=== PATIENT | male | born 1980 | race Caucasian/White ===

== ENCOUNTER 2016-10-03 19:08 | Emergency (ER) | payer MEDICARE, BC, OTHER ==
[2016-10-03 20:06] VITALS: RESP 18
[2016-10-03] MEDS ORDERED: SODIUM CHLORIDE 0.9% 1,000 ML IV STA (20:36)
--- NOTE | 2016-10-03 20:39 | ED ---
General Adult HPI - General Chief complaint: Dizziness Stated complaint: dizziness Time Seen by Provider: 10/03/16 20:30 Source: patient, family, RN notes reviewed Mode of arrival: wheelchair Limitations: no limitations - History of Present Illness Initial comments: 36-year-old male presents to the emergency department with a chief complaint. Patient states the last day or so. Patient [place]. Patient states worse. Patient states lightheaded. He is unable to really describe how the accident. Patient states chest pain or shortness of breath with this. Patient states he hasn't had any fever chills. Patient denies any cough cold runny nose with this. Patient states he's never really felt like this worse if he was concerned.Patient denies any recent fever, chills, shortness of breath, chest pain, back pain, abdominal pain, nausea vomiting, numbness or tingling, dysuria or hematuria, constipation or diarrhea, headaches or visual changes, or any other current symptoms. - Related Data Home Medications Medication Instructions Recorded Confirmed Enalapril [Vasotec] 5 mg PO DAILY 11/07/13 10/03/16 Insulin Aspart [NovoLOG] See Protocol SQ CONTINUOUS 11/07/13 10/03/16 Morphine Sulfate [Ms Contin] 15 mg PO TID PRN 11/07/13 10/03/16 QUEtiapine [SEROquel] 400 mg PO HS 11/07/13 10/03/16 metFORMIN HCL [Glucophage] 500 mg PO BID 11/07/13 10/03/16 ALPRAZolam [Xanax] 0.25 mg PO TID PRN 10/03/16 10/03/16 Escitalopram [Lexapro] 20 mg PO DAILY 10/03/16 10/03/16 Gabapentin [Neurontin] 300 mg PO BID 10/03/16 10/03/16 Meclizine [Antivert] 25 mg PO BID PRN 10/03/16 10/03/16 Methylphenidate HCl [Concerta] 36 mg PO DAILY 10/03/16 10/03/16 lamoTRIgine [LaMICtal] 300 mg PO HS 10/03/16 10/03/16 oxyCODONE HCL [Roxicodone] 5 mg PO TID PRN 10/03/16 10/03/16 Previous Rx's Medication Instructions Recorded Clindamycin [Cleocin] 450 mg PO Q8HR #90 capsule 10/03/16 Allergies Allergy/AdvReac Type Severity Reaction Status Date / Time ciprofloxacin [From Cipro] Allergy Unknown Verified 10/03/16 22:02 ciprofloxacin HCl Allergy Unknown Verified 10/03/16 22:02 [From Cipro] indomethacin [From Indocin] Allergy Unknown Verified 10/03/16 22:02 indomethacin sodium Allergy Unknown Verified 10/03/16 22:02 [From Indocin] sulfamethoxazole Allergy Unknown Verified 10/03/16 22:02 [From Bactrim] trimethoprim [From Bactrim] Allergy Unknown Verified 10/03/16 22:02 Review of Systems ROS Statement: Those systems with pertinent positive or pertinent negative responses have been documented in the HPI. ROS Other: All systems not noted in ROS Statement are negative. Past Medical History Past Medical History: Diabetes Mellitus, Eye Disorder, Neurologic Disorder, Rheumatoid Arthritis (RA), Sleep Apnea/CPAP/BIPAP Additional Past Medical History / Comment(s): gastritis, chronic knee and back and eye pain, blindness, bipolar disorder, gastroparesis History of Any Multi-Drug Resistant Organisms: None Reported Past Surgical History: Orthopedic Surgery Additional Past Surgical History / Comment(s): eye surgery, bilateral knee Past Anesthesia/Blood Transfusion Reactions: No Reported Reaction Past Psychological History: Anxiety, Bipolar, Depression Smoking Status: Former smoker Past Alcohol Use History: None Reported Past Drug Use History: None Reported General Exam - General Exam Comments Initial Comments: General: The patient is awake and alert, in no distress, and does not appear acutely ill. Eye: Pupils are equal, round and reactive to light, extra-ocular movements are intact; there is normal conjunctiva bilaterally. No signs of icterus. Ears, nose, mouth and throat: There are moist mucous membranes. Neck: The neck is supple, there is no tenderness. Cardiovascular: There is a regular rate and rhythm. No murmur, rub or gallop is appreciated. Respiratory: Lungs are clear to auscultation, respirations are non-labored, breath sounds are equal. No wheezes, stridor, rales, or rhonchi. Gastrointestinal: Soft, non-distended, non-tender abdomen without masses or organomegaly noted. There is no rebound or guarding present. No CVA tenderness. Bowel sounds are unremarkable. Back: There is no tenderness to palpation in the midline. There is no obvious deformity. No rashes noted. Musculoskeletal: Normal ROM, no tenderness, There is no pedal edema. There is no calf tenderness or swelling. Sensation intact. Pulses equal bilaterally 2+. Neurological: CN II-XII intact, There are no obvious motor or sensory deficits. Coordination appears grossly intact. Speech is normal. Skin: Skin is warm and dry. At this time the patient does appear to have a very small pilonidal area. Psychiatric: Cooperative, appropriate mood & affect, normal judgment. Limitations: no limitations Course Vital Signs 10/03/16 20:00 Temperature 97.7 F Pulse Rate 109 H Respiratory 18 Rate Blood Pressure 121/70 O2 Sat by Pulse 98 Oximetry Medical Decision Making - Medical Decision Making 36 yo male presents to the ER with cc of dizziness. This time patient is reassessed. Patient is resting comfortably in the room. Lab work is reviewed. At this time we discussed the patient can continue the Antivert for home. Patient does appear to have some very small area of redness over the pilonidal area we will start antibiotics due to his history of needing drainage of this area at this time this does not appear to be appropriate. This time we discussed close follow-up with his doctor and return parameters. Patient and family are negative plan all questions have been answered. They will be discharged home. - Lab Data Result diagrams: 10/03/16 21:00 10/03/16 21:00 Lab Results 10/03/16 10/03/16 10/03/16 Range/Units 21:00 21:00 21:00 WBC 6.0 (3.8-10.6) k/uL RBC 4.73 (4.30-5.90) m/uL Hgb 14.0 (13.0-17.5) gm/dL Hct 39.9 (39.0-53.0) % MCV 84.4 (80.0-100.0) fL MCH 29.7 (25.0-35.0) pg MCHC 35.2 (31.0-37.0) g/dL RDW 13.3 (11.5-15.5) % Plt Count 292 (150-450) k/uL Neutrophils % 56 % Lymphocytes % 34 % Monocytes % 5 % Eosinophils % 3 % Basophils % 1 % Neutrophils # 3.4 (1.3-7.7) k/uL Lymphocytes # 2.0 (1.0-4.8) k/uL Monocytes # 0.3 (0-1.0) k/uL Eosinophils # 0.2 (0-0.7) k/uL Basophils # 0.0 (0-0.2) k/uL Sodium 139 (137-145) mmol/L Potassium 4.1 (3.5-5.1) mmol/L Chloride 103 (98-107) mmol/L Carbon Dioxide 27 (22-30) mmol/L Anion Gap 9 mmol/L BUN 8 L (9-20) mg/dL Creatinine 0.61 L (0.66-1.25) mg/dL Est GFR (MDRD) Af Amer >60 (>60 ml/min/1.73 sqM) Est GFR (MDRD) Non-Af >60 (>60 ml/min/1.73 sqM) Glucose 142 H (74-99) mg/dL Calcium 8.9 (8.4-10.2) mg/dL Total Bilirubin 0.3 (0.2-1.3) mg/dL AST 126 H (17-59) U/L ALT 125 H (21-72) U/L Alkaline Phosphatase 115 (38-126) U/L Troponin I <0.012 (0.000-0.034) ng/mL Total Protein 6.3 (6.3-8.2) g/dL Albumin 3.8 (3.5-5.0) g/dL Urine Color Urine Appearance (Clear) Urine pH (5.0-8.0) Ur Specific [place] (1.001-1.035) Urine Protein (Negative) Urine Glucose (UA) (Negative) Urine Ketones (Negative) Urine Blood (Negative) Urine Nitrite (Negative) Urine Bilirubin (Negative) Urine Urobilinogen (<2.0) mg/dL Ur Leukocyte Esterase (Negative) 10/03/16 Range/Units 21:00 WBC (3.8-10.6) k/uL RBC (4.30-5.90) m/uL Hgb (13.0-17.5) gm/dL Hct (39.0-53.0) % MCV (80.0-100.0) fL MCH (25.0-35.0) pg MCHC (31.0-37.0) g/dL RDW (11.5-15.5) % Plt Count (150-450) k/uL Neutrophils % % Lymphocytes % % Monocytes % % Eosinophils % % Basophils % % Neutrophils # (1.3-7.7) k/uL Lymphocytes # (1.0-4.8) k/uL Monocytes # (0-1.0) k/uL Eosinophils # (0-0.7) k/uL Basophils # (0-0.2) k/uL Sodium (137-145) mmol/L Potassium (3.5-5.1) mmol/L Chloride (98-107) mmol/L Carbon Dioxide (22-30) mmol/L Anion Gap mmol/L BUN (9-20) mg/dL Creatinine (0.66-1.25) mg/dL Est GFR (MDRD) Af Amer (>60 ml/min/1.73 sqM) Est GFR (MDRD) Non-Af (>60 ml/min/1.73 sqM) Glucose (74-99) mg/dL Calcium (8.4-10.2) mg/dL Total Bilirubin (0.2-1.3) mg/dL AST (17-59) U/L ALT (21-72) U/L Alkaline Phosphatase (38-126) U/L Troponin I (0.000-0.034) ng/mL Total Protein (6.3-8.2) g/dL Albumin (3.5-5.0) g/dL Urine Color Light Yellow Urine Appearance Clear (Clear) Urine pH 5.5 (5.0-8.0) Ur Specific [place] 1.006 (1.001-1.035) Urine Protein Negative (Negative) Urine Glucose (UA) 4+ H (Negative) Urine Ketones Negative (Negative) Urine Blood Negative (Negative) Urine Nitrite Negative (Negative) Urine Bilirubin Negative (Negative) Urine Urobilinogen <2.0 (<2.0) mg/dL Ur Leukocyte Esterase Negative (Negative) - Radiology Data Radiology results: report reviewed, image reviewed Disposition Clinical Impression: Pilonidal abscess, Dizziness Disposition: HOME SELF-CARE Condition: Stable Instructions: Abscess (ED), Dizziness (ED) Additional Instructions: Please use medication as discussed. Please follow up with family doctor if symptoms have not improved over the next two days. Please return to the emergency room if your symptoms increase or worsen or for any other concerns. Prescriptions: Clindamycin [Cleocin] 450 mg PO Q8HR #90 capsule Referrals: Nonstaff,Physician [Primary Care Provider] - 1-2 days Time of Disposition: 22:31
[2016-10-03 21:16] LABS: Basophils % (A) 1 %; CH 29.8; CHCM 35.5; Eosinophils # (A) 0.2 k/uL (0-0.7); Eosinophils % (A) 3 %; HCT 39.9 % (39.0-53.0); Luc # (Auto) 0.08; Luc % (Auto) 1; Lymphocytes % (A) 34 %; MCH 29.7 pg (25.0-35.0); MCHC 35.2 g/dL (31.0-37.0); MCV 84.4 fL (80.0-100.0); Mean Platelet Volume 7.1; Monocytes # (A) 0.3 k/uL (0-1.0); Monocytes % (A) 5 %; Neutrophils # (A) 3.4 k/uL (1.3-7.7); Neutrophils % (A) 56 %; RBC 4.73 m/uL (4.30-5.90); RDW 13.3 % (11.5-15.5); WBC (Perox) 6.41
[2016-10-03 21:24] LABS: ALT 125 U/L (21-72); AST 126 U/L (17-59); Alkaline Phosphatase 115 U/L (38-126); Anion Gap 9 mmol/L; Blood Urea Nitrogen 8 mg/dL (9-20); Calcium 8.9 mg/dL (8.4-10.2); Carbon Dioxide 27 mmol/L (22-30); Chloride 103 mmol/L (98-107); Glucose 142 mg/dL (74-99); Non-African American GFR(MDRD) >60 (>60 ml/min/1.73 sqM); Potassium 4.1 mmol/L (3.5-5.1); Sodium 139 mmol/L (137-145); Total Bilirubin 0.3 mg/dL (0.2-1.3); Total Protein 6.3 g/dL (6.3-8.2)
[2016-10-03 21:30] LABS: Appearance,Urine Clear (Clear); Bilirubin,Urine Negative (Negative); Glucose,Urine (UA) 4+ (Negative); Ketones,Urine Negative (Negative); Leukocyte Esterase,Urine Negative (Negative); Nitrite,Urine Negative (Negative); PH, Urine 5.5 (5.0-8.0); Protein,Urine Negative (Negative); Specific Gravity,Urine 1.006 (1.001-1.035); UA Billing (MACRO vs. MICRO) CHEM; Urobilinogen,Urine <2.0 mg/dL (<2.0)
--- NOTE | 2016-10-03 21:36 | CT ---
EXAMINATION TYPE: CT brain wo con DATE OF EXAM: 10/03/2016 COMPARISON: NONE HISTORY: Weakness, fatigue and dizziness CT DLP: 1108.4 mGycm. Automated Exposure Control for Dose Reduction was Utilized. TECHNIQUE: CT scan of the head is performed without contrast. FINDINGS: There is no mass effect nor midline shift. There is no sign of intracranial hemorrhage. V entricles have normal size. The calvarium is intact. IMPRESSION: Negative CT scan of the brain.
[2016-10-03 23:03] VITALS: BP 111/64; PULSE 86; TEMP 97.1
== END 2016-10-03 23:02 | disposition home or self-care (01) ==
LOC: EC 19:08
DX: L05.01 Pilonidal cyst with abscess (principal); R42 Dizziness and giddiness; E11.9 Type 2 diabetes mellitus without complications; F31.9 Bipolar disorder, unspecified; F41.9 Anxiety disorder, unspecified; Z87.891 Personal history of nicotine dependence; Z79.4 Long term (current) use of insulin; Z79.84 Long term (current) use of oral hypoglycemic drugs; Z79.899 Other long term (current) drug therapy; Z88.1 Allergy status to other antibiotic agents; Z88.6 Allergy status to analgesic agent
CPT/HCPCS: 36415; 70450; 80053; 81003; 84484; 85025; 93005; 96360; 96361; 99284

== ENCOUNTER 2016-10-14 18:17 | Emergency (ER) | payer MEDICARE, BC, OTHER ==
[2016-10-14 18:26] LABS: Glucose,Whole Blood 122 mg/dL (75-99)
[2016-10-14] MEDS ORDERED: DEXTROSE 10 % IN WATER 250 ML IV STA ×3 (18:36→19:20)
[2016-10-14 19:04] LABS: Basophils % (A) 0 %; CH 30.2; CHCM 34.1; Eosinophils # (A) 0.2 k/uL (0-0.7); Eosinophils % (A) 3 %; HCT 38.9 % (39.0-53.0); HDW 2.74; HGB 12.8 gm/dL (13.0-17.5); Luc # (Auto) 0.06; Luc % (Auto) 1; Lymphocytes # (A) 1.2 k/uL (1.0-4.8); Lymphocytes % (A) 20 %; MCH 29.4 pg (25.0-35.0); MCHC 32.9 g/dL (31.0-37.0); MCV 89.2 fL (80.0-100.0); Mean Platelet Volume 7.2; Monocytes # (A) 0.3 k/uL (0-1.0); Monocytes % (A) 6 %; Neutrophils # (A) 4.2 k/uL (1.3-7.7); Neutrophils % (A) 70 %; RBC 4.35 m/uL (4.30-5.90); RDW 14.5 % (11.5-15.5); WBC (Perox) 6.23
[2016-10-14 19:12] LABS: ALT 64 U/L (21-72); AST 63 U/L (17-59); Alkaline Phosphatase 109 U/L (38-126); Anion Gap 5 mmol/L; Blood Urea Nitrogen 15 mg/dL (9-20); Calcium 9.1 mg/dL (8.4-10.2); Carbon Dioxide 30 mmol/L (22-30); Chloride 103 mmol/L (98-107); Glucose 108 mg/dL (74-99); Non-African American GFR(MDRD) >60 (>60 ml/min/1.73 sqM); Potassium 3.9 mmol/L (3.5-5.1); Sodium 138 mmol/L (137-145); Total Bilirubin 0.4 mg/dL (0.2-1.3); Total Protein 6.8 g/dL (6.3-8.2)
[2016-10-14 19:23] LABS: Partial Thromboplastin Time 26.4 sec (22.0-30.0); Prothrombin Time 9.9 sec (9.0-12.0)
[2016-10-14 19:24] LABS: Creatine Kinase 484 U/L (55-170)
--- NOTE | 2016-10-14 19:27 | ED ---
Altered Mental Status HPI - General Chief Complaint: Altered Mental Status Stated Complaint: Hypoglycemic Time Seen by Provider: 10/14/16 18:27 Source: EMS Mode of arrival: EMS Limitations: no limitations - History of Present Illness Initial Comments: 36l years old male presents with altered mental status EMS noticed that his sugar was 50 to give him dextrose on arrival to the ER sugar was greater than 100 hours she still quite sleepy he in and out he talks to you conversation is appropriate and he falls back to sleep no obvious distress he does have 2 pain meds on board. Complains about headache no neck pain no chest pain or shortness of breath or abdominal pain no frequency urgency dysuria no symptoms of TIA or CVA - Related Data Home Medications Medication Instructions Recorded Confirmed Enalapril [Vasotec] 5 mg PO DAILY 11/07/13 10/14/16 Insulin Aspart [NovoLOG] See Protocol SQ CONTINUOUS 11/07/13 10/14/16 Morphine Sulfate [Ms Contin] 15 mg PO TID PRN 11/07/13 10/14/16 QUEtiapine [SEROquel] 400 mg PO HS 11/07/13 10/14/16 metFORMIN HCL [Glucophage] 1,000 mg PO BID 11/07/13 10/14/16 ALPRAZolam [Xanax] 0.25 mg PO TID PRN 10/03/16 10/14/16 Escitalopram [Lexapro] 20 mg PO DAILY 10/03/16 10/14/16 Gabapentin [Neurontin] 300 mg PO BID 10/03/16 10/14/16 Meclizine [Antivert] 25 mg PO BID PRN 10/03/16 10/14/16 Methylphenidate HCl [Concerta] 36 mg PO DAILY 10/03/16 10/14/16 lamoTRIgine [LaMICtal] 300 mg PO HS 10/03/16 10/14/16 oxyCODONE HCL [Roxicodone] 5 mg PO TID PRN 10/03/16 10/14/16 Allergies Allergy/AdvReac Type Severity Reaction Status Date / Time ciprofloxacin [From Cipro] Allergy Unknown Verified 10/14/16 18:20 ciprofloxacin HCl Allergy Unknown Verified 10/14/16 18:20 [From Cipro] indomethacin [From Indocin] Allergy Unknown Verified 10/14/16 18:20 indomethacin sodium Allergy Unknown Verified 10/14/16 18:20 [From Indocin] sulfamethoxazole Allergy Unknown Verified 10/14/16 18:20 [From Bactrim] trimethoprim [From Bactrim] Allergy Unknown Verified 10/14/16 18:20 Review of Systems ROS Statement: Those systems with pertinent positive or pertinent negative responses have been documented in the HPI. ROS Other: All systems not noted in ROS Statement are negative. Past Medical History Past Medical History: Diabetes Mellitus, Eye Disorder, Neurologic Disorder, Rheumatoid Arthritis (RA), Sleep Apnea/CPAP/BIPAP Additional Past Medical History / Comment(s): gastritis, chronic knee and back and eye pain, blindness, bipolar disorder, gastroparesis History of Any Multi-Drug Resistant Organisms: None Reported Past Surgical History: Orthopedic Surgery Additional Past Surgical History / Comment(s): eye surgery, bilateral knee Past Anesthesia/Blood Transfusion Reactions: No Reported Reaction Past Psychological History: Anxiety, Bipolar, Depression Smoking Status: Former smoker Past Alcohol Use History: None Reported Past Drug Use History: None Reported General Exam - General Exam Comments Initial Comments: General: The patient is barely awake, GCS is 15 Skin: Skin is warm and dry and no rashes or lesions are noted. Eye: Pupils are equal, round and reactive to light, extra-ocular movements are intact; there is normal conjunctiva bilaterally. Ears, nose, mouth and throat: There are moist mucous membranes and no oral lesions. Neck: The neck is supple, there is no tenderness or JVD. Cardiovascular: There is a regular rate and rhythm. No murmur, rub or gallop is appreciated. Respiratory: To auscultation bilateral, no wheezing no rhonchi no distress respiratory valentin noticed Gastrointestinal: Soft, non-distended, non-tender abdomen without masses or organomegaly noted. There is no rebound or guarding present. Bowel sounds are unremarkable. Back: There is no tenderness to palpation in the midline. There is no obvious deformity. Musculoskeletal: Normal ROM, no tenderness, There is no pedal edema. There is no calf tenderness or swelling. No cords were appreciated. Neurological: CN II-XII intact, Cranial nerves III through XII are intact. There are no obvious motor or sensory deficits. Coordination appears grossly intact. Speech is normal. Psychiatric: Cooperative, appropriate mood & affect, normal judgment. Limitations: no limitations Course Vital Signs 10/14/16 18:20 Temperature 97.9 F Pulse Rate 98 Respiratory 16 Rate Blood Pressure 128/78 O2 Sat by Pulse 97 Oximetry Kelleylio normal sinus rhythm medical rate is 94 OK interval is 172 QRS duration is 98 QT/QTC 344/4:30) EKG does reveal a T-wave inversion in lead [address] elevation or ST depression noticed H - Reevaluation(s) Reevaluation #1: 10/14/16 20:29 At 2015 mom said that he has gastroparesis and he needs his Zofran and morphine once she gets and he will go home Medical Decision Making - Lab Data Result diagrams: 10/14/16 18:46 10/14/16 18:46 Lab Results 10/14/16 10/14/16 10/14/16 Range/Units 18:25 18:46 18:46 WBC 6.0 (3.8-10.6) k/uL RBC 4.35 (4.30-5.90) m/uL Hgb 12.8 L (13.0-17.5) gm/dL Hct 38.9 L (39.0-53.0) % MCV 89.2 (80.0-100.0) fL MCH 29.4 (25.0-35.0) pg MCHC 32.9 (31.0-37.0) g/dL RDW 14.5 (11.5-15.5) % Plt Count 251 (150-450) k/uL Neutrophils % 70 % Lymphocytes % 20 % Monocytes % 6 % Eosinophils % 3 % Basophils % 0 % Neutrophils # 4.2 (1.3-7.7) k/uL Lymphocytes # 1.2 (1.0-4.8) k/uL Monocytes # 0.3 (0-1.0) k/uL Eosinophils # 0.2 (0-0.7) k/uL Basophils # 0.0 (0-0.2) k/uL PT (9.0-12.0) sec INR (<1.2) APTT (22.0-30.0) sec Sodium (137-145) mmol/L Potassium (3.5-5.1) mmol/L Chloride (98-107) mmol/L Carbon Dioxide (22-30) mmol/L Anion Gap mmol/L BUN (9-20) mg/dL Creatinine (0.66-1.25) mg/dL Est GFR (MDRD) Af Amer (>60 ml/min/1.73 sqM) Est GFR (MDRD) Non-Af (>60 ml/min/1.73 sqM) Glucose (74-99) mg/dL POC Glucose (mg/dL) 122 H (75-99) mg/dL POC Glu [employer] ID Sofi, Haley Calcium (8.4-10.2) mg/dL Total Bilirubin (0.2-1.3) mg/dL AST (17-59) U/L ALT (21-72) U/L Alkaline Phosphatase (38-126) U/L Total Creatine Kinase 484 H (55-170) U/L CK-MB (CK-2) 7.6 H* (0.0-2.4) ng/mL CK-MB (CK-2) Rel Index 1.6 Troponin I <0.012 (0.000-0.034) ng/mL Total Protein (6.3-8.2) g/dL Albumin (3.5-5.0) g/dL Urine Color Urine Appearance (Clear) Urine pH (5.0-8.0) Ur Specific [place] (1.001-1.035) Urine Protein (Negative) Urine Glucose (UA) (Negative) Urine Ketones (Negative) Urine Blood (Negative) Urine Nitrite (Negative) Urine Bilirubin (Negative) Urine Urobilinogen (<2.0) mg/dL Ur Leukocyte Esterase (Negative) Urine Opiates Screen (NotDetected) Ur Oxycodone Screen (NotDetected) Urine Methadone Screen (NotDetected) Ur Propoxyphene Screen (NotDetected) Ur Barbiturates Screen (NotDetected) U Tricyclic Antidepress (NotDetected) Ur Phencyclidine Scrn (NotDetected) Ur Amphetamines Screen (NotDetected) U Methamphetamines Scrn (NotDetected) U Benzodiazepines Scrn (NotDetected) Urine Cocaine Screen (NotDetected) U Marijuana (THC) Screen (NotDetected) 10/14/16 10/14/16 10/14/16 Range/Units 18:46 18:46 19:00 WBC (3.8-10.6) k/uL RBC (4.30-5.90) m/uL Hgb (13.0-17.5) gm/dL Hct (39.0-53.0) % MCV (80.0-100.0) fL MCH (25.0-35.0) pg MCHC (31.0-37.0) g/dL RDW (11.5-15.5) % Plt Count (150-450) k/uL Neutrophils % % Lymphocytes % % Monocytes % % Eosinophils % % Basophils % % Neutrophils # (1.3-7.7) k/uL Lymphocytes # (1.0-4.8) k/uL Monocytes # (0-1.0) k/uL Eosinophils # (0-0.7) k/uL Basophils # (0-0.2) k/uL PT 9.9 (9.0-12.0) sec INR 1.0 (<1.2) APTT 26.4 (22.0-30.0) sec Sodium 138 (137-145) mmol/L Potassium 3.9 (3.5-5.1) mmol/L Chloride 103 (98-107) mmol/L Carbon Dioxide 30 (22-30) mmol/L Anion Gap 5 mmol/L BUN 15 (9-20) mg/dL Creatinine 0.63 L (0.66-1.25) mg/dL Est GFR (MDRD) Af Amer >60 (>60 ml/min/1.73 sqM) Est GFR (MDRD) Non-Af >60 (>60 ml/min/1.73 sqM) Glucose 108 H (74-99) mg/dL POC Glucose (mg/dL) (75-99) mg/dL POC Glu [employer] ID Calcium 9.1 (8.4-10.2) mg/dL Total Bilirubin 0.4 (0.2-1.3) mg/dL AST 63 H (17-59) U/L ALT 64 (21-72) U/L Alkaline Phosphatase 109 (38-126) U/L Total Creatine Kinase (55-170) U/L CK-MB (CK-2) (0.0-2.4) ng/mL CK-MB (CK-2) Rel Index Troponin I (0.000-0.034) ng/mL Total Protein 6.8 (6.3-8.2) g/dL Albumin 4.0 (3.5-5.0) g/dL Urine Color Yellow Urine Appearance Clear (Clear) Urine pH 7.0 (5.0-8.0) Ur Specific [place] 1.011 (1.001-1.035) Urine Protein Negative (Negative) Urine Glucose (UA) 3+ H (Negative) Urine Ketones Negative (Negative) Urine Blood Negative (Negative) Urine Nitrite Negative (Negative) Urine Bilirubin Negative (Negative) Urine Urobilinogen <2.0 (<2.0) mg/dL Ur Leukocyte Esterase Negative (Negative) Urine Opiates Screen Detected H (NotDetected) Ur Oxycodone Screen Not Detected (NotDetected) Urine Methadone Screen Not Detected (NotDetected) Ur Propoxyphene Screen Not Detected (NotDetected) Ur Barbiturates Screen Not Detected (NotDetected) U Tricyclic Antidepress Not Detected (NotDetected) Ur Phencyclidine Scrn Not Detected (NotDetected) Ur Amphetamines Screen Not Detected (NotDetected) U Methamphetamines Scrn Not Detected (NotDetected) U Benzodiazepines Scrn Detected H (NotDetected) Urine Cocaine Screen Not Detected (NotDetected) U Marijuana (THC) Screen Not Detected (NotDetected) 10/14/16 Range/Units 19:39 WBC (3.8-10.6) k/uL RBC (4.30-5.90) m/uL Hgb (13.0-17.5) gm/dL Hct (39.0-53.0) % MCV (80.0-100.0) fL MCH (25.0-35.0) pg MCHC (31.0-37.0) g/dL RDW (11.5-15.5) % Plt Count (150-450) k/uL Neutrophils % % Lymphocytes % % Monocytes % % Eosinophils % % Basophils % % Neutrophils # (1.3-7.7) k/uL Lymphocytes # (1.0-4.8) k/uL Monocytes # (0-1.0) k/uL Eosinophils # (0-0.7) k/uL Basophils # (0-0.2) k/uL PT (9.0-12.0) sec INR (<1.2) APTT (22.0-30.0) sec Sodium (137-145) mmol/L Potassium (3.5-5.1) mmol/L Chloride (98-107) mmol/L Carbon Dioxide (22-30) mmol/L Anion Gap mmol/L BUN (9-20) mg/dL Creatinine (0.66-1.25) mg/dL Est GFR (MDRD) Af Amer (>60 ml/min/1.73 sqM) Est GFR (MDRD) Non-Af (>60 ml/min/1.73 sqM) Glucose (74-99) mg/dL POC Glucose (mg/dL) 192 H (75-99) mg/dL POC Glu [employer] Operator ID [place], Haley Calcium (8.4-10.2) mg/dL Total Bilirubin (0.2-1.3) mg/dL AST (17-59) U/L ALT (21-72) U/L Alkaline Phosphatase (38-126) U/L Total Creatine Kinase (55-170) U/L CK-MB (CK-2) (0.0-2.4) ng/mL CK-MB (CK-2) Rel Index Troponin I (0.000-0.034) ng/mL Total Protein (6.3-8.2) g/dL Albumin (3.5-5.0) g/dL Urine Color Urine Appearance (Clear) Urine pH (5.0-8.0) Ur Specific [place] (1.001-1.035) Urine Protein (Negative) Urine Glucose (UA) (Negative) Urine Ketones (Negative) Urine Blood (Negative) Urine Nitrite (Negative) Urine Bilirubin (Negative) Urine Urobilinogen (<2.0) mg/dL Ur Leukocyte Esterase (Negative) Urine Opiates Screen (NotDetected) Ur Oxycodone Screen (NotDetected) Urine Methadone Screen (NotDetected) Ur Propoxyphene Screen (NotDetected) Ur Barbiturates Screen (NotDetected) U Tricyclic Antidepress (NotDetected) Ur Phencyclidine Scrn (NotDetected) Ur Amphetamines Screen (NotDetected) U Methamphetamines Scrn (NotDetected) U Benzodiazepines Scrn (NotDetected) Urine Cocaine Screen (NotDetected) U Marijuana (THC) Screen (NotDetected) Disposition Clinical Impression: Altered mental status, Gastroparesis Disposition: HOME SELF-CARE Condition: Good Instructions: Altered Mental Status (ED) Referrals: Nonstaff,Physician [Primary Care Provider] - 1-2 days
--- NOTE | 2016-10-14 19:33 | CT ---
EXAMINATION TYPE: CT brain wo con DATE OF EXAM: 10/14/2016 COMPARISON: 10/03/2016 HISTORY: weakness, ams, hypoglycemia CT DLP: 981.7 mGycm. Automated Exposure Control for Dose Reduction was Utilized. TECHNIQUE: CT scan of the head is performed without contrast. FINDINGS: Ventricles of normal size. There is no mass effect nor midline shift. There is no sign of i ntracranial hemorrhage. The calvarium is intact. IMPRESSION Negative CT scan of the brain. No change.
[2016-10-14 19:37] LABS: Troponin I <0.012 ng/mL (0.000-0.034)
--- NOTE | 2016-10-14 19:38 | XR ---
EXAMINATION TYPE: XR chest 2V DATE OF EXAM: 10/14/2016 COMPARISON: 10/20/2010 HISTORY: Altered mental status. Chest pain. TECHNIQUE: Frontal and lateral views of the chest are obtained. FINDINGS: Heart and mediastinum are normal. Lungs are clear. There is no sign of pleural effusion. B ede thorax is intact. IMPRESSION: Normal chest. No change.
[2016-10-14 19:40] LABS: Glucose,Whole Blood 192 mg/dL (75-99)
[2016-10-14 19:44] LABS: Creatine Kinase MB 7.6 ng/mL (0.0-2.4)
[2016-10-14 20:14] LABS: Appearance,Urine Clear (Clear); Bilirubin,Urine Negative (Negative); Glucose,Urine (UA) 3+ (Negative); Ketones,Urine Negative (Negative); Leukocyte Esterase,Urine Negative (Negative); Nitrite,Urine Negative (Negative); Protein,Urine Negative (Negative); Specific Gravity,Urine 1.011 (1.001-1.035); UA Billing (MACRO vs. MICRO) CHEM; Urobilinogen,Urine <2.0 mg/dL (<2.0)
[2016-10-14] MEDS ORDERED: MORPHINE SULFATE 4 MG/ML SYRINGE IVP STA (20:31)
[2016-10-14] MEDS ORDERED: ONDANSETRON 4 MG/2 ML VIAL IVP STA (20:31)
[2016-10-14 20:50] VITALS: BP 154/62; PULSE 74; RESP 15; TEMP 98.3
== END 2016-10-14 20:49 | disposition home or self-care (01) ==
LOC: EC 18:17
DX: K31.84 Gastroparesis (principal); R41.82 Altered mental status, unspecified; E11.9 Type 2 diabetes mellitus without complications; F31.9 Bipolar disorder, unspecified; F41.9 Anxiety disorder, unspecified; Z87.891 Personal history of nicotine dependence; Z79.4 Long term (current) use of insulin; Z79.899 Other long term (current) drug therapy; Z88.1 Allergy status to other antibiotic agents; Z88.2 Allergy status to sulfonamides; Z88.6 Allergy status to analgesic agent
CPT/HCPCS: 99285; 96374; 96375; 36415; 93005; 80053; 82550; 82553; 84484; 85025; 85610; 85730; 81003; 80306; 71020; 70450; J2270; J2405

== ENCOUNTER 2016-12-26 17:20 | Emergency (ER) | payer MEDICARE, BC, OTHER ==
[2016-12-26 17:28] VITALS: BP 134/62; PULSE 100; RESP 20; TEMP 98.2
--- NOTE | 2016-12-26 18:22 | ED ---
General Adult HPI - General Chief complaint: Skin/Abscess/Foreign Body Stated complaint: ABSCESS Time Seen by Provider: 12/26/16 17:55 Source: patient, RN notes reviewed Mode of arrival: ambulatory Limitations: no limitations - History of Present Illness Initial comments: This is a 36-year-old male who presents to the emergency department with chief complaint of abscess. Patient states that last night he noticed swelling and redness on his left abdomen. Patient states that it has been draining a bloody , clear fluid. Currently rates his pain as 8/10. Patient reports that he is on a ten-day course of Keflex for cellulitis of his toe and groin. Tomorrow is his last dose of Keflex. Patient reports he is a type I diabetic and has recurring skin infections. Denies fever, chills, chest pain, shortness of breath , abdominal pain, nausea or vomiting, constipation or diarrhea, dysuria or hematuria, numbness or tingling, headache or vision changes. - Related Data Home Medications Medication Instructions Recorded Confirmed Enalapril [Vasotec] 5 mg PO DAILY 11/07/13 12/26/16 Insulin Aspart [NovoLOG] See Protocol SQ CONTINUOUS 11/07/13 12/26/16 Morphine Sulfate [Ms Contin] 15 mg PO TID PRN 11/07/13 12/26/16 QUEtiapine [SEROquel] 400 mg PO HS 11/07/13 12/26/16 metFORMIN HCL [Glucophage] 1,000 mg PO BID 11/07/13 12/26/16 ALPRAZolam [Xanax] 0.25 mg PO TID PRN 10/03/16 12/26/16 Escitalopram [Lexapro] 20 mg PO DAILY 10/03/16 12/26/16 Gabapentin [Neurontin] 300 mg PO BID 10/03/16 12/26/16 Meclizine [Antivert] 25 mg PO BID PRN 10/03/16 12/26/16 Methylphenidate HCl [Concerta] 36 mg PO DAILY 10/03/16 12/26/16 lamoTRIgine [LaMICtal] 300 mg PO HS 10/03/16 12/26/16 oxyCODONE HCL [Roxicodone] 5 mg PO TID PRN 10/03/16 12/26/16 Previous Rx's Medication Instructions Recorded Clindamycin [Cleocin] 450 mg PO TID #90 cap 12/26/16 Allergies Allergy/AdvReac Type Severity Reaction Status Date / Time ciprofloxacin [From Cipro] Allergy Unknown Verified 12/26/16 17:28 ciprofloxacin HCl Allergy Unknown Verified 12/26/16 17:28 [From Cipro] indomethacin [From Indocin] Allergy Unknown Verified 12/26/16 17:28 indomethacin sodium Allergy Unknown Verified 12/26/16 17:28 [From Indocin] sulfamethoxazole Allergy Unknown Verified 12/26/16 17:28 [From Bactrim] trimethoprim [From Bactrim] Allergy Unknown Verified 12/26/16 17:28 Review of Systems ROS Statement: Those systems with pertinent positive or pertinent negative responses have been documented in the HPI. ROS Other: All systems not noted in ROS Statement are negative. Past Medical History Past Medical History: Diabetes Mellitus, Eye Disorder, Neurologic Disorder, Rheumatoid Arthritis (RA), Sleep Apnea/CPAP/BIPAP Additional Past Medical History / Comment(s): gastritis, chronic knee and back and eye pain, blindness, bipolar disorder, gastroparesis History of Any Multi-Drug Resistant Organisms: None Reported Past Surgical History: Orthopedic Surgery Additional Past Surgical History / Comment(s): eye surgery, bilateral knee Past Anesthesia/Blood Transfusion Reactions: No Reported Reaction Past Psychological History: Anxiety, Bipolar, Depression Smoking Status: Former smoker Past Alcohol Use History: Occasional Past Drug Use History: None Reported General Exam - General Exam Comments Initial Comments: General: Awake and alert, well-developed; in no apparent distress. HEENT: Head atraumatic, normocephalic. Pupils are equal, round and reactive to light. Extraocular movements intact. Neck: Supple. Normal ROM. Cardiovascular: Regular rate and rhythm. No murmurs, rubs or gallops. Chest symmetrical. Respiratory: Lungs clear to auscultation bilaterally. No wheezes, rales or rhonchi. Normal respiratory effort with no use of accessory muscles. Skin: [place], warm and dry. Small abscess with surrounding cellulitis noted on the left lower abdomen lateral to umbilicus. Abscess is draining a serous fluid. Neurological: Alert and oriented x3. CN II-XII grossly intact. No focal neuro deficits. Psychiatric: Normal mood and affect. No overt signs of depression or anxiety noted. Limitations: no limitations Course Vital Signs 12/26/16 17:26 Temperature 98.2 F Pulse Rate 100 Respiratory 20 Rate Blood Pressure 134/62 O2 Sat by Pulse 95 Oximetry Medical Decision Making - Medical Decision Making This is a 36-year-old male who presents to the emergency department with left abdominal abscess. This case was discussed with Dr. Moran who also evaluated the patient. Patient was advised to continue his Keflex. He will be prescribed clindamycin. Patient was advised to use warm compresses and allow abscess to drain. He was instructed to return to the emergency department if it worsens or he develops a fever. Patient is in agreement to the plan and voices understanding. All questions were answered. Disposition Clinical Impression: Abscess of skin of abdomen Disposition: HOME SELF-CARE Condition: Good Instructions: Abscess (ED) Additional Instructions: Please take medications as prescribed. Use warm compresses and allow abscess to drain. Please follow up with primary care provider within 1-2 days. Return to emergency department if symptoms should worsen, you develop a fever or any concerns arise. Prescriptions: Clindamycin [Cleocin] 450 mg PO TID #90 cap Referrals: Nonstaff,Physician [Primary Care Provider] - 1-2 days Time of Disposition: 18:22
== END 2016-12-26 18:33 | disposition home or self-care (01) ==
LOC: EC 17:20
DX: L02.211 Cutaneous abscess of abdominal wall (principal); E11.43 Type 2 diabetes mellitus with diabetic autonomic (poly)neuropathy; K31.84 Gastroparesis; F31.9 Bipolar disorder, unspecified; F41.9 Anxiety disorder, unspecified; Z88.1 Allergy status to other antibiotic agents; Z88.2 Allergy status to sulfonamides; Z88.6 Allergy status to analgesic agent; Z79.4 Long term (current) use of insulin; Z79.84 Long term (current) use of oral hypoglycemic drugs; Z79.899 Other long term (current) drug therapy; Z87.891 Personal history of nicotine dependence
CPT/HCPCS: 99282

== ENCOUNTER 2017-12-03 11:03 | Emergency (ER) | payer MEDICARE, BC, OTHER ==
[2017-12-03 11:41] VITALS: BP 118/75; PULSE 96; RESP 18; TEMP 98
--- NOTE | 2017-12-03 12:11 | XR ---
EXAMINATION TYPE: XR ankle complete RT, XR foot complete RT DATE OF EXAM: 12/03/2017 CLINICAL HISTORY: Twisting injury with pain TECHNIQUE: Frontal, lateral and oblique images of the right ankle and foot are obtained. COMPARISON: None. FINDINGS: There is no acute fracture/dislocation evident in the right ankle. The ankle mortise appe ars within normal limits. Moderate subcutaneous edema involving distal leg is present. There is more focal 7 mm round soft tissue density at level of lateral malleolus could reflect focal subcutaneous h ematoma. There is no acute fracture or dislocation evident in the right foot. Slight hallux valgus positioning first metatarsophalangeal joint is present. There is flexion in varus positioning distal third throu gh fifth toes. There is metallic linear 13 mm foreign body along plantar surface at level of fourth p roximal metaphysis proximal phalanx. IMPRESSION: There is linear radiodense foreign body suspected probable metallic needle fragment plan tar aspect forefoot level near base of fourth proximal phalanx. No acute fracture or dislocation is s een.
--- NOTE | 2017-12-03 12:37 | ED ---
Lower Extremity Injury HPI - General Chief Complaint: Extremity Injury, Lower Stated Complaint: Twisted ankle Time Seen by Provider: 12/03/17 12:10 Source: patient, RN notes reviewed Mode of arrival: ambulatory Limitations: no limitations - History of Present Illness Initial Comments: 37-year-old male presented emergency from chief complaint of right ankle foot injury. Patient states that he twisted today. Patient complains of pain along the ankle and the ball of his foot. Patient denies any open wounds or sores. Patient states that he's had no recent surgeries or fractures. Patient denies any paresthesias. - Related Data Home Medications Medication Instructions Recorded Confirmed Enalapril [Vasotec] 5 mg PO DAILY 11/07/13 12/26/16 Insulin Aspart [NovoLOG] See Protocol SQ CONTINUOUS 11/07/13 12/26/16 Morphine Sulfate [Ms Contin] 15 mg PO TID PRN 11/07/13 12/26/16 QUEtiapine [SEROquel] 400 mg PO HS 11/07/13 12/26/16 metFORMIN HCL [Glucophage] 1,000 mg PO BID 11/07/13 12/26/16 ALPRAZolam [Xanax] 0.25 mg PO TID PRN 10/03/16 12/26/16 Escitalopram [Lexapro] 20 mg PO DAILY 10/03/16 12/26/16 Gabapentin [Neurontin] 300 mg PO BID 10/03/16 12/26/16 Meclizine [Antivert] 25 mg PO BID PRN 10/03/16 12/26/16 Methylphenidate HCl [Concerta] 36 mg PO DAILY 10/03/16 12/26/16 lamoTRIgine [LaMICtal] 300 mg PO HS 10/03/16 12/26/16 oxyCODONE HCL [Roxicodone] 5 mg PO TID PRN 10/03/16 12/26/16 Previous Rx's Medication Instructions Recorded Clindamycin [Cleocin] 450 mg PO TID #90 cap 12/26/16 Ibuprofen [Motrin] 600 mg PO Q8HR PRN #30 tab 12/03/17 Allergies Allergy/AdvReac Type Severity Reaction Status Date / Time ciprofloxacin [From Cipro] Allergy Unknown Verified 12/03/17 11:42 ciprofloxacin HCl Allergy Unknown Verified 12/03/17 11:42 [From Cipro] indomethacin [From Indocin] Allergy Unknown Verified 12/03/17 11:42 indomethacin sodium Allergy Unknown Verified 12/03/17 11:42 [From Indocin] sulfamethoxazole Allergy Unknown Verified 12/03/17 11:42 [From Bactrim] trimethoprim [From Bactrim] Allergy Unknown Verified 12/03/17 11:42 Review of Systems ROS Statement: Those systems with pertinent positive or pertinent negative responses have been documented in the HPI. ROS Other: All systems not noted in ROS Statement are negative. Past Medical History Past Medical History: Diabetes Mellitus, Eye Disorder, Neurologic Disorder, Rheumatoid Arthritis (RA), Sleep Apnea/CPAP/BIPAP Additional Past Medical History / Comment(s): chronic knee and back and eye pain , blindness, gastroparesis History of Any Multi-Drug Resistant Organisms: None Reported Past Surgical History: Orthopedic Surgery Additional Past Surgical History / Comment(s): eye surgery, bilateral knee Past Anesthesia/Blood Transfusion Reactions: No Reported Reaction Past Psychological History: Anxiety, Bipolar, Depression Smoking Status: Former smoker Past Alcohol Use History: Occasional Past Drug Use History: None Reported General Exam Limitations: no limitations General appearance: alert, in no apparent distress Head exam: Present: atraumatic, normocephalic, normal inspection Respiratory exam: Present: normal lung sounds bilaterally. Absent: respiratory distress, wheezes, rales, rhonchi, stridor Cardiovascular Exam: Present: regular rate, normal rhythm, normal heart sounds. Absent: systolic murmur, diastolic murmur, rubs, gallop, clicks Extremities exam: Present: other (Tenderness along the lateral and medial malleoli region, ball of the foot no open wounds sores lesions noted there is no ecchymosis no swelling neurovascular intact.) Course Vital Signs 12/03/17 11:38 Temperature 98 F Pulse Rate 96 Respiratory 18 Rate Blood Pressure 118/75 O2 Sat by Pulse 98 Oximetry Medical Decision Making - Medical Decision Making 37-year-old male presented for right foot injury. There is no acute fracture he doesn't foreign-body though there is no opening appears to be old. He'll follow-up with orthopedic physician and return for any worsening symptoms. Disposition Clinical Impression: Right foot sprain, Foreign body in right foot Disposition: HOME SELF-CARE Condition: Stable Instructions: Foot Sprain (ED) Additional Instructions: Please return to the Emergency Department if symptoms worsen or any other concerns. Prescriptions: Ibuprofen [Motrin] 600 mg PO Q8HR PRN #30 tab PRN Reason: Pain Is patient prescribed a controlled substance at d/c from ED?: No Referrals: Nonstaff,Physician [Primary Care Provider] - 1-2 days Hector Sanchez DO [Doctor of Osteopathic Medicine] - 1-2 days Time of Disposition: 12:36
== END 2017-12-03 12:46 | disposition home or self-care (01) ==
LOC: EC 11:03
DX: S93.601A Unspecified sprain of right foot, initial encounter (principal); S90.851A Superficial foreign body, right foot, initial encounter; E11.9 Type 2 diabetes mellitus without complications; M06.9 Rheumatoid arthritis, unspecified; H54.7 Unspecified visual loss; F31.9 Bipolar disorder, unspecified; F41.9 Anxiety disorder, unspecified; Z87.891 Personal history of nicotine dependence; Z79.4 Long term (current) use of insulin; Z79.899 Other long term (current) drug therapy; Z88.1 Allergy status to other antibiotic agents; Z88.2 Allergy status to sulfonamides; Z88.8 Allergy status to other drugs, medicaments and biological substances; W01.0XXA Fall on same level from slipping, tripping and stumbling without subsequent striking against object, initial encounter; X50.1XXA Overexertion from prolonged static or awkward postures, initial encounter; Y92.009 Unspecified place in unspecified non-institutional (private) residence as the place of occurrence of the external cause
CPT/HCPCS: 99283

== ENCOUNTER 2022-11-15 03:35 | Observation (INO) | payer MEDICARE, BC, OTHER ==
[2022-11-15] MEDS ORDERED: MORPHINE SULFATE 4 MG/ML SYRINGE IV STA (04:04)
[2022-11-15] MEDS ORDERED: SODIUM CHLORIDE 0.9% 1,000 ML IV STA (04:04)
--- NOTE | 2022-11-15 04:05 | ED ---
Chest Pain HPI - General Chief Complaint: Chest Pain Stated Complaint: Chest pain Time Seen by Provider: 11/15/22 03:51 Source: patient, EMS, RN notes reviewed, old records reviewed Mode of arrival: EMS Limitations: no limitations - History of Present Illness Initial Comments: This is a 42-year-old male to the emergency department today for evaluation p atient resents today for evaluation regards to wrist pain abdominal pain epigastric pain. Elevated blood pressure elevated heart rate. Patient mildly poor historian secondary to some developmental delay present mother for symptoms. Does have underlying history of diabetes MD Complaint: chest pain -: hour(s) Onset: during rest, during exertion Pain Location: substernal, epigastric Severity: moderate Severity scale (1-10): 5 Quality: tightness, aching Consistency: intermittent Anginal Symptoms: nausea Treatments Prior to Arrival: none - Related Data Home Medications Medication Instructions Recorded Confirmed Methylphenidate HCl [Concerta] 36 mg PO DAILY 10/03/16 11/15/22 oxyCODONE HCL [Roxicodone] 5 mg PO TID PRN 10/03/16 11/15/22 QUEtiapine [SEROquel] 50 - 100 tab PO HS PRN 12/03/17 11/15/22 ALPRAZolam [Xanax] 0.5 mg PO DAILY PRN 11/15/22 11/15/22 Ascorbic Acid [Vitamin C] 500 mg PO DAILY 11/15/22 11/15/22 Atorvastatin [Lipitor] 20 mg PO HS 11/15/22 11/15/22 Cholecalciferol [Vitamin D3 (25 50 mcg PO DAILY 11/15/22 11/15/22 Mcg = 1000 Iu)] Docusate [Colace] 100 mg PO BID 11/15/22 11/15/22 Erythromycin [Otto-Tab] 250 mg PO Q8H 11/15/22 11/15/22 Ferrous Sulfate [Iron (65 MG 325 mg PO MOWEFR 11/15/22 11/15/22 Elemental)] Gabapentin [Neurontin] 400 mg PO TID 11/15/22 11/15/22 Insulin Aspart (For Pump) [NovoLOG 0.01 unit SQ-PUMP CONTINUOUS 11/15/22 11/15/22 (For Pump)] Methylphenidate HCl [Concerta] 18 mg PO DAILY@1300 11/15/22 11/15/22 Morphine Sulfate 15 mg PO BID 11/15/22 11/15/22 Naloxegol Oxalate [Movantik] 25 mg PO DAILY 11/15/22 11/15/22 Ondansetron [Ondansetron Odt] 4 mg PO Q4H PRN 11/15/22 11/15/22 QUEtiapine FUMARATE [SEROquel] 300 mg PO HS 11/15/22 11/15/22 Tacrolimus [Tacrolimus 0.1%] 1 applic TOPICAL TID 11/15/22 11/15/22 Tamsulosin [Flomax] 0.4 mg PO HS 11/15/22 11/15/22 Topiramate [Topamax] 50 mg PO BID 11/15/22 11/15/22 Vortioxetine Hydrobromide 10 mg PO DAILY 11/15/22 11/15/22 [Trintellix] Zinc Gluconate [Zinc] 50 mg PO DAILY 11/15/22 11/15/22 dilTIAZem HCL [dilTIAZem HCL 24Hr 120 mg PO BID 11/15/22 11/15/22 ER] lamoTRIgine [LaMICtal] 200 mg PO HS 11/15/22 11/15/22 metFORMIN HCL [Glucophage] 500 mg PO DIRECTED 11/15/22 11/15/22 Allergies Allergy/AdvReac Type Severity Reaction Status Date / Time ciprofloxacin [From Cipro] Allergy Unknown Verified 11/15/22 10:56 ciprofloxacin HCl Allergy Unknown Verified 11/15/22 10:56 [From Cipro] indomethacin [From Indocin] Allergy Unknown Verified 11/15/22 10:56 indomethacin sodium Allergy Unknown Verified 11/15/22 10:56 [From Indocin] sulfamethoxazole Allergy Unknown Verified 11/15/22 10:56 [From Bactrim] trimethoprim [From Bactrim] Allergy Unknown Verified 11/15/22 10:56 Review of Systems ROS Statement: Those systems with pertinent positive or pertinent negative responses have been documented in the HPI. ROS Other: All systems not noted in ROS Statement are negative. EKG Findings - EKG Comments: EKG Findings:: EKG sinus tachycardia 108 AK 161 QRS 104 QTC 390 Past Medical History Past Medical History: Diabetes Mellitus, Eye Disorder, Neurologic Disorder, Rheumatoid Arthritis (RA), Sleep Apnea/CPAP/BIPAP Additional Past Medical History / Comment(s): chronic knee and back and eye pain, blindness, gastroparesis History of Any Multi-Drug Resistant Organisms: None Reported Past Surgical History: Orthopedic Surgery Additional Past Surgical History / Comment(s): eye surgery, bilateral knee Past Anesthesia/Blood Transfusion Reactions: No Reported Reaction Past Psychological History: Anxiety, Bipolar, Depression Past Alcohol Use History: Occasional Past Drug Use History: None Reported - Past Family History Mother Family Medical History: No Reported History Father Family Medical History: AFIB, Diabetes Mellitus Additional Family Medical History / Comment(s): retinitis, General Exam Limitations: no limitations General appearance: alert, in no apparent distress, anxious Head exam: Present: atraumatic, normocephalic, normal inspection Eye exam: Present: normal appearance, PERRL, EOMI. Absent: scleral icterus, conjunctival injection, periorbital swelling ENT exam: Present: normal exam, mucous membranes moist Neck exam: Present: normal inspection. Absent: tenderness, meningismus, lymphadenopathy Respiratory exam: Present: normal lung sounds bilaterally. Absent: respiratory distress, wheezes, rales, rhonchi, stridor Cardiovascular Exam: Present: normal rhythm, tachycardia, normal heart sounds. Absent: systolic murmur, diastolic murmur, rubs, gallop, clicks GI/Abdominal exam: Present: soft, normal bowel sounds. Absent: distended, tenderness, guarding, rebound, rigid Extremities exam: Present: normal inspection, full ROM, normal capillary refill. Absent: tenderness, pedal edema, joint swelling, calf tenderness Back exam: Present: normal inspection Neurological exam: Present: alert, oriented X3, CN II-XII intact Psychiatric exam: Present: normal affect, normal mood Skin exam: Present: warm, dry, intact, normal color. Absent: rash Course Vital Signs 11/15/22 11/15/22 11/15/22 03:39 05:57 06:19 Temperature 98.2 F Pulse Rate 109 H 100 97 Respiratory 20 18 18 Rate Blood Pressure 189/109 144/69 129/80 O2 Sat by Pulse 96 95 94 L Oximetry - Reevaluation(s) Reevaluation #1: 11/15/22 05:27 Medical record is reviewed Reevaluation #2: Patient symptoms are improved here in the ER although still complaining of chest pain no shortness of breath Reevaluation #3: Patient informed results questions answered Reevaluation #4: 11/15/22 05:27 Was pt. sent in by a medical professional or institution ([facility]cdaniel, RAIL BENDER, urgent care, hospital, or penitentiary...) When possible be specific @ -no Did you speak to anyone other than the patient for history (EMS, parent, family, police, friend...)? What history was obtained from this source @ -no Did you review nursing and triage notes (agree or disagree)? Why? @ -agree Are old charts reviewed (outside hosp., previous admission, EMS record, old EKG, old radiological studies, urgent care reports/EKG's, penitentiary records)? Report findings @ -yes Differential Diagnosis (chest pain, altered mental status, abdominal pain women, abdominal pain men, vaginal bleeding, weakness, fever, dyspnea, syncope, headache, dizziness, GI bleed, back pain, seizure, CVA, palpatations, mental health, musculoskeletal)? @ -prior EKG interpreted by me (3pts min.). @ -yes X-rays interpreted by me (1pt min.). @ -yes CT interpreted by me (1pt min.). @ -no U/S interpreted by me (1pt. min.). @ -no What testing was considered but not performed or refused? (CT, X-rays, U/S, labs)? Why? @ -none What meds were considered but not given or refused? Why? @ -none Did you discuss the management of the patient with other professionals (professionals i.e. [facility] Mcdaniel, RAIL BENDER, lab, RT, psych nurse, community mental health social worker, medical staff services manager, teacher, strategic intelligence officer, case filler)? Give summary @ -no Was smoking cessation discussed for >3mins.? @ -no Was critical care preformed (if so, how long)? @ -no Were there social determinants of health that impacted care today? How? (Homelessness, low income, unemployed, alcoholism, drug addiction, transportation, low edu. Level, literacy, decrease access to med. care, senior living, rehab)? @ -none Was there de-escalation of care discussed even if they declined (Discuss DNR or withdrawal of care, Hospice)? DNR status @ -no What co-morbidities impacted this encounter? (DM, HTN, Smoking, COPD, CAD, Cancer, CVA, ARF, Chemo, Hep., AIDS, mental health diagnosis, sleep apnea, morbid obesity)? @ -none Was patient admitted / discharged? Hospital course, mention meds given and route, prescriptions, significant lab abnormalities, going to OR and other pertinent info. @ - 42 male to the emergency department for evaluation of chest pain, heaviness crushing chest pain. Patient does have history of diabetes will be admitted for chest pain observation Admitted Undiagnosed new problem with uncertain prognosis? @ -no Drug Therapy requiring intensive monitoring for toxicity (Heparin, Nitro, Insulin, Cardizem)? @ -no Were any procedures done? @ -no Diagnosis/symptom? @ -Chest pain Acute, or Chronic, or Acute on Chronic? @ -Acute Uncomplicated (without systemic symptoms) or Complicated (systemic symptoms)? @ -Complicated Side effects of treatment? @ -no Exacerbation, Progression, or Severe Exacerbation? @ -exacerbation Poses a threat to life or bodily function? How? (Chest pain, [place], [place], pneumonia, PE, COPD, DKA, ARF, appy, cholecystitis, CVA, Diverticulitis, Homicidal, Suicidal, threat to staff... and all critical care pts) @ -yes with chest pain causing acute coronary syndrome Reevaluation #5: 11/15/22 05:27 Differential Chest Pain: Stable Angina, Unstable Angina, STEMI, NSTEMI Aortic Dissection, Pneumothorax, Musculoskeletal, Esophageal Spasm GERD, Cholecystitis, Pancreatitis, Zoster, this is not meant to be an all-inclusive list. - Consultations Consultation #1: Spoke with admitting physicians elevated admit this patient Chest Pain MDM - MDM 42 male to the emergency department for evaluation of chest pain, heaviness crushing chest pain. Patient does have history of diabetes will be admitted for chest pain observation Disposition Clinical Impression: Atypical chest pain, Chest pain Disposition: ADMITTED IP TO THIS HOSP Condition: Good Is patient prescribed a controlled substance at d/c from ED?: No Time of Disposition: 06:30
[2022-11-15 04:29] LABS: Basophils % (A) 1 %; Eosinophils # (A) 0.1 k/uL (0-0.7); Eosinophils % (A) 2 %; HCT 48.4 % (39.0-53.0); Lymphocytes # (A) 1.9 k/uL (1.0-4.8); Lymphocytes % (A) 21 %; MCH 28.7 pg (25.0-35.0); MCHC 33.1 g/dL (31.0-37.0); MCV 86.8 fL (80.0-100.0); Mean Platelet Volume 7.7; Monocytes # (A) 0.4 k/uL (0-1.0); Monocytes % (A) 4 %; Neutrophils # (A) 6.3 k/uL (1.3-7.7); Neutrophils % (A) 71 %; Platelet Count 274 k/uL (150-450); RBC 5.58 m/uL (4.30-5.90); RDW 13.7 % (11.5-15.5); WBC 8.8 k/uL (3.8-10.6)
[2022-11-15 04:40] LABS: ALT 46 U/L (4-49); AST 94 U/L (17-59); African American GFR (CKD) >90 (>60 ml/min/1.73 sqM); Albumin 4.2 g/dL (3.5-5.0); Alkaline Phosphatase 123 U/L (38-126); Anion Gap 9 mmol/L; Blood Urea Nitrogen 23 mg/dL (9-20); Calcium 9.3 mg/dL (8.4-10.2); Carbon Dioxide 26 mmol/L (22-30); Chloride 103 mmol/L (98-107); Glucose 158 mg/dL (74-99); Lipase 81 U/L (23-300); Magnesium 1.9 mg/dL (1.6-2.3); Non-African American GFR(CKD) >90 (>60 ml/min/1.73 sqM); Potassium 4.3 mmol/L (3.5-5.1); Sodium 138 mmol/L (137-145); Total Bilirubin 0.5 mg/dL (0.2-1.3); Total Protein 7.1 g/dL (6.3-8.2)
[2022-11-15 04:45] LABS: INR 0.9 (<1.2); Partial Thromboplastin Time 25.2 sec (22.0-30.0); Prothrombin Time 9.5 sec (9.0-12.0)
[2022-11-15 04:48] LABS: NT-Pro-B-Type Natriuretic Pept <20 pg/mL
[2022-11-15] MEDS ORDERED: LABETALOL 5 MG/ML VIAL MDV IVP STA (05:12)
[2022-11-15] MEDS ORDERED: KETOROLAC 15 MG/ML 1 ML VIAL IVP STA (05:12)
[2022-11-15] MEDS ORDERED: NALOXONE 0.4 MG/ML 1 ML VIAL IV PRN (06:24)
[2022-11-15] MEDS ORDERED: ONDANSETRON 4 MG/2 ML VIAL IVP PRN (06:24)
[2022-11-15] MEDS ORDERED: MORPHINE SULFATE 4 MG/ML SYRINGE IV PRN (06:24)
[2022-11-15] MEDS ORDERED: SODIUM CHLORIDE 0.9% 1,000 ML IV SCH (06:30)
--- NOTE | 2022-11-15 06:37 | XR ---
EXAMINATION TYPE: XR chest 1V portable DATE OF EXAM: 11/15/2022 4:24 AM COMPARISON: Chest radiographs from 10/14/2016 TECHNIQUE: XR chest 1V portable Portable AP radiograph of the chest. CLINICAL INDICATION:Male, 42 years old with history of chest pain; FINDINGS: Patient is rotated which limits evaluation. Lungs/Pleura: There is no evidence of pleural effusion, focal consolidation, or pneumothorax. Pulmonary vascularity: Unremarkable. Heart/mediastinum: Cardiomediastinal silhouette is unremarkable. Musculoskeletal: No acute osseous pathology. IMPRESSION: No acute cardiopulmonary disease/process.
[2022-11-15 09:50] VITALS: RESP 16
[2022-11-15] MEDS ORDERED: DEXTROSE 50% SYRINGE 50 ML IVP PRN ×2 (09:54)
[2022-11-15] MEDS ORDERED: PANTOPRAZOLE 40 MG/10 ML VIAL IVP SCH (10:00)
[2022-11-15 11:32] LABS: Glucose,Whole Blood 101 mg/dL (70-110)
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
[2022-11-15] MEDS ORDERED: INSULIN ASPART (NovoLOG) 100 UNIT/ML VIAL SQ SCH (12:30)
[2022-11-15] MEDS ORDERED: ALPRAZolam 0.5 MG TAB PO PRN (13:26)
--- NOTE | 2022-11-15 13:29 | P.HPIM ---
History of Present Illness H&P Date: 11/15/22 History of present illness; patient is a 42-year-old gentleman with past medical history significant for hyperlipidemia, diabetes mellitus, hypertension presented to the ER because of epigastric pain. Patient is a poor historian, history is obtained from the electronic records. According to that, patient was complaining of epigastric pain. Pain was extended into the central part of the chest, pressure-like, no aggravating or relieving factors associated with this epigastric pain. Denies any shortness of breath at any palpitations. Because of this, patient came to the ER Initial lab work done in the ER showed WBC 8.8, hemoglobin 16, platelet count 274, sodium 1:30, potassium 4.3, BUN 20, creatinine 0.64, glucose 158, troponin 0.012 EKG done in the ER heart rate 108, QRS 104, no ST segment elevation, no T-wave inversions seen Chest x-ray done in the ER showed no acute cardiopulmonary disease/process Patient was admitted to medicine service REVIEW OF SYSTEMS: CONSTITUTIONAL: No fever, no malaise, no fatigue. HEENT: No recent visual problems or hearing problems. Denied any sore throat. CARDIOVASCULAR: As mentioned in HPI PULMONARY: As mentioned in HPI GASTROINTESTINAL: No diarrhea, no nausea, no vomiting, no abdominal pain. NEUROLOGICAL: No headaches, no weakness, no numbness. HEMATOLOGICAL: Denies any bleeding or petechiae. GENITOURINARY: Denies any burning micturition, frequency, or urgency. MUSCULOSKELETAL/RHEUMATOLOGICAL: Denies any joint pain, swelling, or any muscle pain. ENDOCRINE: Denies any polyuria or polydipsia. The rest of the 14-point review of systems is negative. PHYSICAL EXAMINATION: GENERAL: The patient is alert and oriented x3, not in any acute distress. Well developed, well nourished. HEENT: Pupils are round and equally reacting to light. EOMI. No scleral icterus. No conjunctival pallor. Normocephalic, atraumatic. No pharyngeal erythema. No thyromegaly. CARDIOVASCULAR: S1 and S2 present. No murmurs, rubs, or gallops. PULMONARY: Chest is clear to auscultation, no wheezing or crackles. ABDOMEN: Soft, nontender, nondistended, normoactive bowel sounds. No palpable organomegaly. MUSCULOSKELETAL: No joint swelling or deformity. EXTREMITIES: No cyanosis, clubbing, or pedal edema. NEUROLOGICAL: Gross neurological examination did not reveal any focal deficits. SKIN: No rashes. Assessment and plan Chest pain Hypertensive emergency Hyperlipidemia Diabetes mellitus Monitor vital signs Monitor CBC Monitor CMP Continue telemetry monitoring Trend troponins ordered 2-D echo Add IV Protonix Consult cardiology Labs and medication were reviewed.. Continue same treatment. Continue with symptomatic treatment. Resume home medication. Monitor labs and vitals. DVT and GI prophylaxis. Further recommendations as per clinical course of the patient Dictation was produced using [employer] dictation software. please excuse any grammatical, word or spelling errors. Past Medical History Past Medical History: Diabetes Mellitus, Eye Disorder, Neurologic Disorder, Rheumatoid Arthritis (RA), Sleep Apnea/CPAP/BIPAP Additional Past Medical History / Comment(s): chronic knee and back and eye pain, blindness, gastroparesis History of Any Multi-Drug Resistant Organisms: None Reported Past Surgical History: Orthopedic Surgery Additional Past Surgical History / Comment(s): eye surgery, bilateral knee Past Anesthesia/Blood Transfusion Reactions: No Reported Reaction Past Psychological History: Anxiety, Bipolar, Depression Past Alcohol Use History: Occasional Past Drug Use History: None Reported - Past Family History Mother Family Medical History: No Reported History Father Family Medical History: AFIB, Diabetes Mellitus Additional Family Medical History / Comment(s): retinitis, Medications and Allergies Home Medications Medication Instructions Recorded Confirmed Type Methylphenidate HCl [Concerta] 36 mg PO DAILY 10/03/16 11/15/22 History oxyCODONE HCL [Roxicodone] 5 mg PO TID PRN 10/03/16 11/15/22 History QUEtiapine [SEROquel] 50 - 100 tab PO HS PRN 12/03/17 11/15/22 History ALPRAZolam [Xanax] 0.5 mg PO DAILY PRN 11/15/22 11/15/22 History Ascorbic Acid [Vitamin C] 500 mg PO DAILY 11/15/22 11/15/22 History Atorvastatin [Lipitor] 20 mg PO HS 11/15/22 11/15/22 History Cholecalciferol [Vitamin D3 (25 50 mcg PO DAILY 11/15/22 11/15/22 History Mcg = 1000 Iu)] Docusate [Colace] 100 mg PO BID 11/15/22 11/15/22 History Erythromycin [Otto-Tab] 250 mg PO Q8H 11/15/22 11/15/22 History Ferrous Sulfate [Feosol] 325 mg PO MOWEFR 11/15/22 11/15/22 History Gabapentin [Neurontin] 400 mg PO TID 11/15/22 11/15/22 History Insulin Aspart (For Pump) [NovoLOG 0.01 unit SQ-PUMP CONTINUOUS 11/15/22 11/15/22 History (For Pump)] Methylphenidate HCl [Concerta] 18 mg PO DAILY@1300 11/15/22 11/15/22 History Morphine Sulfate 15 mg PO BID 11/15/22 11/15/22 History Naloxegol Oxalate [Movantik] 25 mg PO DAILY 11/15/22 11/15/22 History Ondansetron [Ondansetron Odt] 4 mg PO Q4H PRN 11/15/22 11/15/22 History QUEtiapine FUMARATE [SEROquel] 300 mg PO HS 11/15/22 11/15/22 History Tacrolimus [Tacrolimus 0.1%] 1 applic TOPICAL TID 11/15/22 11/15/22 History Tamsulosin [Flomax] 0.4 mg PO HS 11/15/22 11/15/22 History Topiramate [Topamax] 50 mg PO BID 11/15/22 11/15/22 History Vortioxetine Hydrobromide 10 mg PO DAILY 11/15/22 11/15/22 History [Trintellix] Zinc Gluconate [Zinc] 50 mg PO DAILY 11/15/22 11/15/22 History dilTIAZem HCL [dilTIAZem HCL 24Hr 120 mg PO BID 11/15/22 11/15/22 History ER] lamoTRIgine [LaMICtal] 200 mg PO HS 11/15/22 11/15/22 History metFORMIN HCL [Glucophage] 500 mg PO DIRECTED 11/15/22 11/15/22 History Allergies Allergy/AdvReac Type Severity Reaction Status Date / Time ciprofloxacin [From Cipro] Allergy Unknown Verified 11/15/22 10:56 ciprofloxacin HCl Allergy Unknown Verified 11/15/22 10:56 [From Cipro] indomethacin [From Indocin] Allergy Unknown Verified 11/15/22 10:56 indomethacin sodium Allergy Unknown Verified 11/15/22 10:56 [From Indocin] sulfamethoxazole Allergy Unknown Verified 11/15/22 10:56 [From Bactrim] trimethoprim [From Bactrim] Allergy Unknown Verified 11/15/22 10:56 Physical Exam Vitals: Vital Signs Temp Pulse Resp BP Pulse Ox 11/15/22 06:19 97 18 129/80 94 L 11/15/22 05:57 100 18 144/69 95 11/15/22 03:39 98.2 F 109 H 20 189/109 96 Intake and Output 11/14/22 11/15/22 11/15/22 22:59 06:59 14:59 Other: Weight 113.398 kg Results CBC & Chem 7: 11/15/22 04:20 11/15/22 04:20 Labs: Abnormal Lab Results - Last 24 Hours (Table) 11/15/22 Range/Units 04:20 BUN 23 H (9-20) mg/dL Creatinine 0.64 L (0.66-1.25) mg/dL Glucose 158 H (74-99) mg/dL AST 94 H (17-59) U/L
[2022-11-15] MEDS: CHOLECALCIFEROL 25 MCG (1000 IU) TABLET PO SCH (14:15)
[2022-11-15] MEDS: DILTIAZEM CD 120 MG CAP.ER.24H PO SCH ×2 (14:15→20:37)
[2022-11-15] MEDS: TACROLIMUS TOPICAL SCH ×2 (14:16→19:54)
[2022-11-15] MEDS: ZINC SULFATE 220 MG CAP PO SCH (14:16)
[2022-11-15] MEDS: GABAPENTIN 400 MG CAP PO SCH ×2 (14:16→20:36)
[2022-11-15] MEDS: ASCORBIC ACID 500 MG TAB PO SCH (14:16)
[2022-11-15] MEDS: MORPHINE SULFATE IR 15 MG TABLET PO SCH ×2 (14:19→20:36)
--- NOTE | 2022-11-15 14:51 | CA ---
Transthoracic Echo Report Name: Galindo Henson Age: 42 Gender: M : 1980 Exam Date: 11/15/2022 13:33 Exam Location: [facility] Ht (in): 65 Wt (lb): 250 Ordering Physician: Maritza Rodriguez MD ([id number]) Attending/Referring Phys: Repeat Chief Alysia Velasquez RDCS Procedure CPT: Indications: CP Cardiac Hx: Technical Quality: Technically difficult study Contrast 1: Lumason Total Dose (mL): 4 Contrast 2: Total Dose (mL): MEASUREMENTS (Male / Female) Normal Values 2D ECHO LV Diastolic Diameter PLAX 3.1 cm 4.2 - 5.9 / 3.9 - 5.3 cm LV Systolic Diameter PLAX 1.9 cm IVS Diastolic Thickness 1.4 cm 0.6 - 1.0 / 0.6 - 0.9 cm LVPW Diastolic Thickness 1.2 cm 0.6 - 1.0 / 0.6 - 0.9 cm LV Relative Wall Thickness 0.8 RV Internal Dim ED PLAX 2.9 cm LA Volume 40.4 cm??? 18 - 58 / 22 - 52 cm??? M-MODE Aortic Root Diameter MM 2.9 cm LA Systolic Diameter MM 3.1 cm LA Ao Ratio MM 1.1 AV Cusp Separation MM 2.3 cm DOPPLER AV Peak Velocity 128.2 cm/s AV Peak Gradient 6.6 mmHg AV Mean Velocity 95.2 cm/s AV Mean Gradient 4.0 mmHg AV Velocity Time Integral 23.2 cm LVOT Peak Velocity 100.6 cm/s LVOT Peak Gradient 4.0 mmHg LVOT Velocity Time Integral 21.3 cm MV Area PHT 9.5 cm??? Mitral E Point Velocity 79.0 cm/s Mitral A Point Velocity 71.1 cm/s Mitral E to A Ratio 1.1 MV Deceleration Time 80.1 ms MV E' Velocity 9.1 cm/s Mitral E to MV E' Ratio 8.7 FINDINGS Left Ventricle Moderately increased left ventricular wall thickness. Left ventricular cavity size normal. Normal left ventricular systolic function with no obvious regional wall motion abnormalities. Left ventricular ejection fraction is estimated at 55-60 %. Right Ventricle Normal right ventricular size and function. Right ventricular systolic pressure within normal limits. Right Atrium Normal right atrial size. Left Atrium Normal left atrial size. Mitral Valve Structurally normal mitral valve. No mitral stenosis, regurgitation or prolapse. Aortic Valve Trileaflet aortic valve. No aortic valve stenosis or regurgitation. Tricuspid Valve Structurally normal tricuspid valve. Mild tricuspid regurgitation. Pulmonic Valve Pulmonic valve not well visualized. Pericardium No pericardial effusion. Aorta Normal size aortic root and proximal ascending aorta. CONCLUSIONS Lumason ECHO contrast used for improved visualization of the endocardial borders (inadequate visualization of two or more contiguous segments). Technically difficult study. Normal left ventricle size and systolic function Limited Doppler study with mild tricuspid regurgitation Previewed by: Dr. Maritza Rodriguez MD (Electronically Signed) Final Date: 15 November 2022 14:50
[2022-11-15] MEDS: VORTIOXETINE HYDROBROMIDE 20 MG TABLET PO SCH (15:33)
[2022-11-15 16:26] LABS: Glucose,Whole Blood 418 mg/dL (70-110)
[2022-11-15] MEDS ORDERED: INSULIN PUMP BASAL RATES 1 EACH MISC MISCELLANE PRN (16:45)
[2022-11-15] MEDS ORDERED: INSULIN ASPART (NovoLOG) 100 UNIT/ML VIAL SQ PRN (16:45)
[2022-11-15] MEDS ORDERED: INSPUCOR MISCELLANE PRN (16:45)
[2022-11-15] MEDS: INSULIN PUMP MEAL BOLUS 1 UNIT MISC MISCELLANE SCH ×2 (17:39→20:40)
[2022-11-15 20:11] LABS: Glucose,Whole Blood 315 mg/dL (70-110)
[2022-11-15] MEDS: TOPIRAMATE 25 MG TAB PO SCH (20:36)
[2022-11-15] MEDS: DOCUSATE 100 MG CAP PO SCH (20:36)
[2022-11-15] MEDS ORDERED: TAMSULOSIN 0.4 MG CAP.ER.24H PO SCH (21:00)
[2022-11-15] MEDS ORDERED: QUEtiapine 100 MG TAB PO SCH (21:00)
[2022-11-15] MEDS ORDERED: lamoTRIgine 100 MG TAB PO SCH (21:00)
[2022-11-15] MEDS ORDERED: ATORVASTATIN 20 MG TAB PO SCH (21:00)
[2022-11-16 02:09] LABS: Glucose,Whole Blood 118 mg/dL (70-110)
[2022-11-16 06:20] LABS: Glucose,Whole Blood 100 mg/dL (70-110)
[2022-11-16] MEDS: INSULIN PUMP MEAL BOLUS 1 UNIT MISC MISCELLANE SCH (06:20)
[2022-11-16] MEDS ORDERED: PANTOPRAZOLE 40 MG TABLET PO SCH (07:30)
[2022-11-16] MEDS: ZINC SULFATE 220 MG CAP PO SCH (08:16)
[2022-11-16] MEDS: DOCUSATE 100 MG CAP PO SCH (08:16)
[2022-11-16] MEDS: DILTIAZEM CD 120 MG CAP.ER.24H PO SCH (08:16)
[2022-11-16] MEDS: VORTIOXETINE HYDROBROMIDE 20 MG TABLET PO SCH (08:16)
[2022-11-16] MEDS: GABAPENTIN 400 MG CAP PO SCH (08:16)
[2022-11-16] MEDS: CHOLECALCIFEROL 25 MCG (1000 IU) TABLET PO SCH (08:16)
[2022-11-16] MEDS: TOPIRAMATE 25 MG TAB PO SCH (08:16)
[2022-11-16] MEDS: ASCORBIC ACID 500 MG TAB PO SCH (08:17)
[2022-11-16] MEDS: MORPHINE SULFATE IR 15 MG TABLET PO SCH (08:17)
[2022-11-16] MEDS: TACROLIMUS TOPICAL SCH (08:18)
[2022-11-16] MEDS ORDERED: METHYLPHENIDATE HCL 36 MG PO SCH (09:00)
[2022-11-16 09:24] VITALS: BP 108/59; PULSE 88; TEMP 98.1
--- NOTE | 2022-11-16 12:11 | P.DS ---
Providers Date of admission: 11/15/22 06:24 Expected date of discharge: 11/16/22 Attending physician: Carina Martinez Consults: 11/15/22 06:24 Consult Physician Routine Consulting Provider: Maritza Rodriguez Consult Reason/Comments: cp Do you want consulting provider notified?: Yes Primary care physician: Stated None Hospital Course: Discharge diagnoses; Chest pain Hypertensive emergency Hyperlipidemia Diabetes mellitus Hospital course; patient is a 42-year-old gentleman with past medical history significant for hyperlipidemia, diabetes mellitus, hypertension presented to the ER because of epigastric pain. Patient is a poor historian, history is obtained from the electronic records. According to that, patient was complaining of epigastric pain. Pain was extended into the central part of the chest, pressure-like, no aggravating or relieving factors associated with this epigastric pain. Denies any shortness of breath at any palpitations. Because of this, patient came to the ER Initial lab work done in the ER showed WBC 8.8, hemoglobin 16, platelet count 274, sodium 1:30, potassium 4.3, BUN 20, creatinine 0.64, glucose 158, troponin 0.012 EKG done in the ER heart rate 108, QRS 104, no ST segment elevation, no T-wave inversions seen Chest x-ray done in the ER showed no acute cardiopulmonary disease/process Patient was admitted to medicine service 11/16. Patient seen and examined. Cardiology evaluated the patient, troponins remained flat. 2-D echo done showed no wall motion abnormalities. Cardiology cleared the patient for discharge PHYSICAL EXAMINATION: GENERAL: The patient is alert and oriented x3, not in any acute distress. Well developed, well nourished. HEENT: Pupils are round and equally reacting to light. EOMI. No scleral icterus. No conjunctival pallor. Normocephalic, atraumatic. No pharyngeal erythema. No thyromegaly. CARDIOVASCULAR: S1 and S2 present. No murmurs, rubs, or gallops. PULMONARY: Chest is clear to auscultation, no wheezing or crackles. ABDOMEN: Soft, nontender, nondistended, normoactive bowel sounds. No palpable organomegaly. MUSCULOSKELETAL: No joint swelling or deformity. EXTREMITIES: No cyanosis, clubbing, or pedal edema. NEUROLOGICAL: Gross neurological examination did not reveal any focal deficits. SKIN: No rashes. Dictation was produced using [employer] software. please excuse any grammatical, word or spelling errors. Patient Condition at Discharge: Good Plan - Discharge Summary Discharge Rx Participant: Yes New Discharge Prescriptions: Continue oxyCODONE HCL [Roxicodone] 5 mg PO TID PRN PRN Reason: Pain Methylphenidate HCl [Concerta] 36 mg PO DAILY QUEtiapine [SEROquel] 50 - 100 tab PO HS PRN PRN Reason: Anxiety metFORMIN HCL [Glucophage] 500 mg PO DIRECTED Zinc Gluconate [Zinc] 50 mg PO DAILY Docusate [Colace] 100 mg PO BID Cholecalciferol [Vitamin D3 (25 Mcg = 1000 Iu)] 50 mcg PO DAILY Tamsulosin [Flomax] 0.4 mg PO HS Atorvastatin [Lipitor] 20 mg PO HS Vortioxetine Hydrobromide [Trintellix] 10 mg PO DAILY Tacrolimus [Tacrolimus 0.1%] 1 applic TOPICAL TID Morphine Sulfate 15 mg PO BID QUEtiapine FUMARATE [SEROquel] 300 mg PO HS Gabapentin [Neurontin] 400 mg PO TID lamoTRIgine [LaMICtal] 200 mg PO HS Insulin Aspart (For Pump) [NovoLOG (For Pump)] 0.01 unit SQ-PUMP CONTINUOUS Ascorbic Acid [Vitamin C] 500 mg PO DAILY dilTIAZem HCL [dilTIAZem HCL 24Hr ER] 120 mg PO BID Topiramate [Topamax] 50 mg PO BID ALPRAZolam [Xanax] 0.5 mg PO DAILY PRN PRN Reason: Anxiety Naloxegol Oxalate [Movantik] 25 mg PO DAILY Ferrous Sulfate [Iron (65 MG Elemental)] 325 mg PO MOWEFR Ondansetron [Ondansetron Odt] 4 mg PO Q4H PRN PRN Reason: Nausea And Vomiting Methylphenidate HCl [Concerta] 18 mg PO DAILY@1300 Erythromycin [Otto-Tab] 250 mg PO Q8H Discharge Medication List Methylphenidate HCl [Concerta] 36 mg PO DAILY 10/03/16 [History] oxyCODONE HCL [Roxicodone] 5 mg PO TID PRN 10/03/16 [History] QUEtiapine [SEROquel] 50 - 100 tab PO HS PRN 12/03/17 [History] ALPRAZolam [Xanax] 0.5 mg PO DAILY PRN 11/15/22 [History] Ascorbic Acid [Vitamin C] 500 mg PO DAILY 11/15/22 [History] Atorvastatin [Lipitor] 20 mg PO HS 11/15/22 [History] Cholecalciferol [Vitamin D3 (25 Mcg = 1000 Iu)] 50 mcg PO DAILY 11/15/22 [History] Docusate [Colace] 100 mg PO BID 11/15/22 [History] Erythromycin [Otto-Tab] 250 mg PO Q8H 11/15/22 [History] Ferrous Sulfate [Iron (65 MG Elemental)] 325 mg PO MOWEFR 11/15/22 [History] Gabapentin [Neurontin] 400 mg PO TID 11/15/22 [History] Insulin Aspart (For Pump) [NovoLOG (For Pump)] 0.01 unit SQ-PUMP CONTINUOUS 11/15/22 [History] Methylphenidate HCl [Concerta] 18 mg PO DAILY@1300 11/15/22 [History] Morphine Sulfate 15 mg PO BID 11/15/22 [History] Naloxegol Oxalate [Movantik] 25 mg PO DAILY 11/15/22 [History] Ondansetron [Ondansetron Odt] 4 mg PO Q4H PRN 11/15/22 [History] QUEtiapine FUMARATE [SEROquel] 300 mg PO HS 11/15/22 [History] Tacrolimus [Tacrolimus 0.1%] 1 applic TOPICAL TID 11/15/22 [History] Tamsulosin [Flomax] 0.4 mg PO HS 11/15/22 [History] Topiramate [Topamax] 50 mg PO BID 11/15/22 [History] Vortioxetine Hydrobromide [Trintellix] 10 mg PO DAILY 11/15/22 [History] Zinc Gluconate [Zinc] 50 mg PO DAILY 11/15/22 [History] dilTIAZem HCL [dilTIAZem HCL 24Hr ER] 120 mg PO BID 11/15/22 [History] lamoTRIgine [LaMICtal] 200 mg PO HS 11/15/22 [History] metFORMIN HCL [Glucophage] 500 mg PO DIRECTED 11/15/22 [History] Follow up Appointment(s)/Referral(s): None,Stated [Primary Care Provider] - 1-2 days Samman,Bashar, MD [STAFF PHYSICIAN] - 1 Week Patient Instructions/Handouts: Chest Pain (DC) Discharge Disposition: HOME SELF-CARE
[2022-11-16] MEDS ORDERED: METHYLPHENIDATE HCL 18 MG PO SCH (13:00)
[2022-11-17] MEDS ORDERED: FERROUS SULFATE 325 MG TAB PO SCH (12:30)
== END 2022-11-16 10:32 | disposition home or self-care (01) ==
LOC: EC 03:35 → 3SCARD 06:24
PROVIDERS: ADMIT Hospitalist; ATTEND Hospitalist
DX: R07.89 Other chest pain (principal); I16.1 Hypertensive emergency; E78.5 Hyperlipidemia, unspecified; E11.43 Type 2 diabetes mellitus with diabetic autonomic (poly)neuropathy; K31.84 Gastroparesis; M19.90 Unspecified osteoarthritis, unspecified site; I49.9 Cardiac arrhythmia, unspecified; R25.1 Tremor, unspecified; R10.13 Epigastric pain; I10 Essential (primary) hypertension; R62.50 Unspecified lack of expected normal physiological development in childhood; M06.9 Rheumatoid arthritis, unspecified; G47.30 Sleep apnea, unspecified; F31.9 Bipolar disorder, unspecified; F41.9 Anxiety disorder, unspecified; H54.7 Unspecified visual loss; H57.10 Ocular pain, unspecified eye; M25.539 Pain in unspecified wrist; G89.29 Other chronic pain; M54.9 Dorsalgia, unspecified; M25.569 Pain in unspecified knee; Z79.899 Other long term (current) drug therapy; Z79.4 Long term (current) use of insulin; Z96.41 Presence of insulin pump (external) (internal); Z79.84 Long term (current) use of oral hypoglycemic drugs; Z87.891 Personal history of nicotine dependence; Z88.8 Allergy status to other drugs, medicaments and biological substances; Z88.1 Allergy status to other antibiotic agents; Z83.3 Family history of diabetes mellitus; Z82.49 Family history of ischemic heart disease and other diseases of the circulatory system; Z83.518 Family history of other specified eye disorder
CPT/HCPCS: 96361 ×2; 96375 ×2; 96374; 99285; 36415; 93005; 85379; 83880; 80053; 83690; 83735; 84484; 85025; 85610; 85730; 71045; G0378 ×2; C8929; J2270; J1885; C9113; Q9950; J1920; 93306